=== PATIENT | female | born 1980 | race Caucasian/White ===

== ENCOUNTER 2025-03-28 07:12 | Outpatient (CLI) | payer OTHER, SELFPAY ==
--- NOTE | ~2025-03-28 | XR_ITS ---
XR foot RT min 3V 03/28/2025 07:23 Indication: Right foot pain Procedure: 4 views right foot Comparison: No prior studies for comparison. Findings: No fracture, subluxation or dislocation. No significant soft tissue abnormality. Lisfranc j oint intact. No foreign bodies. There is a degenerative calcaneal enthesophyte. Impression: 1: No significant bone or joint abnormality. Reviewed, dictated and finalized at location [] Impression: 1: No significant bone or joint abnormality.
== END 2025-03-28 07:13 | disposition home or self-care (01) ==
PROVIDERS: PCP Internal Medicine; Visit Provider Internal Medicine
DX: M79.671 Pain in right foot (principal)
CPT/HCPCS: 73630